=== PATIENT | female | born 1950 | race Caucasian/White ===

== ENCOUNTER 2019-05-20 08:56 | Day surgery (SDC) | payer MEDICARE ==
[~2019-05-20] VITALS: Ht 167.6 cm; Wt 80.0 kg
[2019-05-20] MEDS ORDERED: SODIUM CHLORIDE 0.9% 500 ML IV PRN (09:24)
[2019-05-20 09:29] VITALS: BP 122/78
[2019-05-20] MEDS ORDERED: APIX5TAB PO (09:45)
[2019-05-20] MEDS ORDERED: DILT180C84 PO (09:45)
[2019-05-20] MEDS ORDERED: PLEASE ENTER HEIGHT AND WEIGHT MC SCH (10:00)
[2019-05-20 10:03] LABS: ANION GAP 7 mmol/L (5-15); CALCIUM 9.1 mg/dL (8.5-10.1); CHLORIDE 111 mmol/L (98-107)
[2019-05-20] MEDS ORDERED: PROPOFOL 10 MG/ML, 20ML ONE (11:08)
== END 2019-05-20 12:33 | disposition home or self-care (01) ==
LOC: CACL 08:56
PROVIDERS: ATTEND Internal Medicine Cardiovascular Disease
DX: I48.0 Paroxysmal atrial fibrillation (principal); I34.0 Nonrheumatic mitral (valve) insufficiency; E66.3 Overweight; Z68.27 Body mass index [BMI] 27.0-27.9, adult; Z79.01 Long term (current) use of anticoagulants; Z79.899 Other long term (current) drug therapy; Z88.0 Allergy status to penicillin; Z85.9 Personal history of malignant neoplasm, unspecified
CPT/HCPCS: 36415; 80048; 92960; 93312; 93321; 93325; J2704

== ENCOUNTER 2019-10-26 08:14 | Outpatient (CLI) | payer MEDICARE ==
[~2019-10-26 08:14] MED LIST: ACET325T26 PO; APIX5TAB PO; DILT120C83 PO; DILT180C77 PO
== END 2019-10-26 23:59 | disposition home or self-care (01) ==
LOC: CFH 08:14
PROVIDERS: ATTEND Internal Medicine
DX: Z12.31 Encounter for screening mammogram for malignant neoplasm of breast (principal); N95.8 Other specified menopausal and perimenopausal disorders; M85.89 Other specified disorders of bone density and structure, multiple sites
CPT/HCPCS: 77063; 77067; 77080

== ENCOUNTER → 2020-11-27 | Outpatient (CLI) | payer MEDICARE | END | disposition home or self-care (01) | LOC: CFH 12:09 | PROVIDERS: ATTEND Nurse Practitioner | DX: Z12.31 Encounter for screening mammogram for malignant neoplasm of breast (principal) | CPT/HCPCS: 77063; 77067 ==

== ENCOUNTER 2021-05-23 11:07 | Day surgery (SDC) | payer MEDICARE ==
[~2021-05-23] VITALS: Ht 165.1 cm; Wt 80.0 kg
[2021-05-23] MEDS ORDERED: SODIUM CHLORIDE 0.9% 1,000 ML IV ONE (11:30)
[2021-05-23] MEDS ORDERED: METO25TA35 PO (11:39)
[2021-05-23 11:43] VITALS: BP 113/85
[2021-05-23 12:11] LABS: BASOPHILS % (AUTO) 1 % (0-1); EOSINOPHILS % (AUTO) 2 % (1-7); LYMPHOCYTES % (AUTO) 28 % (22-44); MEAN CORPUSCULAR HEMOGLOBIN 32.9 pg (27.0-34.8); MEAN CORPUSCULAR HGB CONC 33.7 g/dL (32.4-35.8); MEAN PLATELET VOLUME 8.1 fL (7.4-10.4); MONOCYTES % (AUTO) 11 % (2-9); NEUTROPHILS % (AUTO) 59 % (42-75); PLATELET COUNT 215 x10^3/uL (130-400); RED BLOOD COUNT 4.18 x10^6/uL (3.82-5.3); RED CELL DISTRIBUTION WIDTH 14.3 % (9.6-15.2)
[2021-05-23 12:20] LABS: ANION GAP 8 mmol/L (5-15); CALCIUM 9.1 mg/dL (8.5-10.1); CHLORIDE 110 mmol/L (98-107); CREATININE 1.02 mg/dL (0.55-1.02)
== END 2021-05-23 15:09 | disposition home or self-care (01) ==
LOC: CACL 11:07
PROVIDERS: ATTEND Internal Medicine Cardiovascular Disease
DX: I48.0 Paroxysmal atrial fibrillation (principal); I48.92 Unspecified atrial flutter; I08.1 Rheumatic disorders of both mitral and tricuspid valves; Z20.822 Contact with and (suspected) exposure to COVID-19; Z79.01 Long term (current) use of anticoagulants; Z79.82 Long term (current) use of aspirin; Z79.899 Other long term (current) drug therapy; Z88.0 Allergy status to penicillin
CPT/HCPCS: 36415; 80048; 85025; 87635; 92960; 93005; 93312; 93321; 93325

== ENCOUNTER 2021-06-26 08:33 | Observation (INO) | payer MEDICARE ==
[~2021-06-26] VITALS: Ht 167.6 cm; Wt 82.5 kg
[~2021-06-26 08:33] MED LIST changes: +METO25TA35 PO
[2021-06-26] MEDS ORDERED: SUGAMMADEX 200 MG/2 ML IVPush ONE ×2 (08:40→10:36)
[2021-06-26] MEDS ORDERED: HEPARIN 1,000 UNITS/ML, 10ML ONE ×2 (08:40)
[2021-06-26] MEDS ORDERED: LIDOCAINE-MPF 2% ,5ML ONE (08:40)
[2021-06-26] MEDS ORDERED: ONDANSETRON 2MG/ML, 2ML ONE (08:41)
[2021-06-26] MEDS ORDERED: PROPOFOL 10 MG/ML, 20ML ONE (08:41)
[2021-06-26] MEDS ORDERED: ROCURONIUM 10MG/ML,5ML ONE (08:41)
[2021-06-26] MEDS ORDERED: SUCCINYLCHOLINE 20 MG/ML, 10ML ONE (08:41)
[2021-06-26] MEDS ORDERED: FENTANYL PF 100 MCG/2ML ONE (08:41)
[2021-06-26] MEDS ORDERED: DEXAMETHASONE 4 MG/ML, 1ML ONE (08:41)
[2021-06-26] MEDS ORDERED: SODIUM CHLORIDE 0.9% 1,000 ML IV SCH (09:00)
[2021-06-26] MEDS ORDERED: MULT1TAB58 PO (09:13)
[2021-06-26] MEDS ORDERED: CHOL10003 PO (09:13)
[2021-06-26] MEDS ORDERED: CALC-534 PO (09:13)
[2021-06-26] MEDS ORDERED: ASCO1CAP2 PO (09:13)
[2021-06-26] MEDS ORDERED: MAGN400T36 PO (09:13)
[2021-06-26 09:18] VITALS: BP 125/86
[2021-06-26] MEDS ORDERED: PLEASE ENTER HEIGHT AND WEIGHT MC SCH (09:30)
[2021-06-26 09:52] LABS: BASOPHILS % (AUTO) 1 % (0-1); EOSINOPHILS % (AUTO) 1 % (1-7); LYMPHOCYTES % (AUTO) 32 % (22-44); MEAN CORPUSCULAR HEMOGLOBIN 33.2 pg (27.0-34.8); MEAN CORPUSCULAR HGB CONC 33.8 g/dL (32.4-35.8); MEAN PLATELET VOLUME 7.9 fL (7.4-10.4); MONOCYTES % (AUTO) 14 % (2-9); NEUTROPHILS % (AUTO) 51 % (42-75); PLATELET COUNT 190 x10^3/uL (130-400); RED BLOOD COUNT 4.01 x10^6/uL (3.82-5.3)
[2021-06-26 09:59] LABS: ALANINE AMINOTRANSFERASE 31 U/L (12-78); ALBUMIN 3.8 g/dL (3.4-5.0); ANION GAP 6 mmol/L (5-15); CALCIUM 9.3 mg/dL (8.5-10.1); CHLORIDE 110 mmol/L (98-107); CREATININE 0.91 mg/dL (0.55-1.02); INTERNATIONAL NORMALIZED RATIO 1.01 (0.93-1.1); PROTHROMBIN TIME 10.8 Seconds (9.6-11.5)
[2021-06-26 10:02] LABS: ALKALINE PHOSPHATASE 67 U/L (45-117); BILIRUBIN,TOTAL 0.5 mg/dL (0.2-1.0)
[2021-06-26] MEDS ORDERED: hydrALAzine 20 MG/ML, 1ML IV PRN (10:30)
[2021-06-26] MEDS ORDERED: FENTANYL PF 100 MCG/2ML IV PRN (10:30)
[2021-06-26] MEDS ORDERED: HYDROmorphone 1 MG/ML, 1ML INJ IVPush PRN (10:30)
[2021-06-26] MEDS ORDERED: ACETAMINOPHEN 325 MG TABLET PO PRN ×2 (10:30→12:30)
[2021-06-26] MEDS ORDERED: OXYcodone 5 MG/5 ML ORAL.SOL UDC PO PRN (10:30)
[2021-06-26] MEDS ORDERED: LABETALOL 5MG/ML, 20ML IV PRN (10:30)
[2021-06-26] MEDS ORDERED: PROMETHAZINE 25 MG/ML, 1ML IVPush PRN (10:30)
[2021-06-26] MEDS ORDERED: EPHEDRINE 50 MG/ML, 1ML IVPush PRN (10:30)
[2021-06-26] MEDS ORDERED: ONDANSETRON 2MG/ML, 2ML IVPush PRN ×2 (10:30→12:30)
[2021-06-26] MEDS ORDERED: LIDOCAINE 1%, 20ML ONE (10:56)
[2021-06-26] MEDS ORDERED: PHENYLEPHRINE 10 MG/ML ONE (11:01)
[2021-06-26] MEDS ORDERED: ZOLPIDEM 5MG TABLET PO PRN (12:30)
[2021-06-26] MEDS ORDERED: MEPERIDINE/PF 25MG/0.5ML IVPush PRN (13:00)
[2021-06-26] MEDS ORDERED: MEPERIDINE/PF 25MG/ML,1ML ONE (13:03)
[2021-06-26] MEDS ORDERED: APIXABAN 5 MG TABLET ONE (13:11)
[2021-06-26] MEDS: APIXABAN 5 MG TABLET PO SCH ×2 (15:20→21:06)
[2021-06-26 19:22] VITALS: BP 122/79
[2021-06-26] MEDS ORDERED: METOPROLOL TARTRATE 25 MG TAB PO SCH (21:00)
[2021-06-26] MEDS ORDERED: APIXABAN 5 MG TABLET PO SCH (21:00)
[2021-06-27 00:41] VITALS: BP 97/61
[2021-06-27 07:20] VITALS: BP 100/66
[2021-06-27] MEDS ORDERED: ACET325T26 PO (08:53)
[2021-06-27] MEDS ORDERED: CHOLECALCIFEROL 1,000 UNIT TABLET PO SCH (09:00)
[2021-06-27] MEDS: MULTIVITAMIN 1 TABLET PO SCH ×2 (09:00→09:49)
[2021-06-27] MEDS ORDERED: CALCIUM/VITAMIN D3 250-125 TABLET PO SCH (09:00)
[2021-06-27] MEDS ORDERED: ASCORBIC ACID 500 MG TABLET PO SCH (09:00)
[2021-06-27] MEDS ORDERED: MAGNESIUM OXIDE 400 MG TABLET PO SCH (09:00)
[2021-06-27] MEDS ORDERED: METOPROLOL TARTRATE 25 MG TAB PO SCH ×2 (09:30→21:00)
[2021-06-27] MEDS: APIXABAN 5 MG TABLET PO SCH (09:46)
[2021-06-27] MEDS ORDERED: METO25TA35 PO (11:32)
== END 2021-06-27 12:24 | disposition home or self-care (01) ==
LOC: CACL 08:33 → ORIP 12:29 → CACL 12:29 → 5SO 14:53
PROVIDERS: ADMIT Internal Medicine Cardiovascular Disease; ATTEND Internal Medicine Cardiovascular Disease
DX: I48.4 Atypical atrial flutter (principal); Z20.822 Contact with and (suspected) exposure to COVID-19; I48.0 Paroxysmal atrial fibrillation; I45.9 Conduction disorder, unspecified; Z79.01 Long term (current) use of anticoagulants; Z88.0 Allergy status to penicillin; Z79.899 Other long term (current) drug therapy
CPT/HCPCS: 36415; 71046; 80053; 85025; 85347; 85610; 85730; 87635; 93005; 93308; 93312; 93325; 93462; 93613; 93621; 93653; 93662; C1730; C1732; C1759; C1766; C1893; C1894; G0378; J0330; J1100; J1644; J2175; J2370; J2405; J2704; J3010; J3490